=== PATIENT | male | born 1965 | race Caucasian/White ===

== ENCOUNTER 2016-11-05 16:13 | Emergency (ER) | payer MEDICAID ==
[~2016-11-05] VITALS: Ht 177.8 cm; Wt 171.6 kg
[2016-11-05 16:18] VITALS: BP 164/100
== END 2016-11-05 19:24 | disposition home or self-care (01) ==
LOC: ED 16:13
DX: M54.5 Low back pain (principal); R10.9 Unspecified abdominal pain; I10 Essential (primary) hypertension; Z79.1 Long term (current) use of non-steroidal anti-inflammatories (NSAID)
CPT/HCPCS: J1885